=== PATIENT | male | born 1940 | race Caucasian/White ===

== ENCOUNTER → 2020-12-06 10:24 | Outpatient (CLI) | payer OTHER, SELFPAY ==
--- NOTE | 2020-12-06 | DI.MRI.S_ITS ---
PROCEDURE: MR CERVICAL SPINE WO CON INDICATIONS: Radiculopathy, cervical region TECHNIQUE: Noncontrast sagittal T1 spin echo and T2 fast spin echo, sagittal STIR, foraminal oblique sagittal T2 fast spin echo, and axial gradient echo or T2 fast spin echo through the cervical spine. COMPARISON: None. FINDINGS: Image quality: Excellent. Alignment and Curvature: There is trace C7-T1 anterolisthesis. There is loss of normal cervical spine curvature. Bone Marrow: Reactive endplate changes noted adjacent to the C3-C4, C4-C5, C5-C6, C6-C7 and C7-T1 discs. Spinal Cord: Visualized spinal cord has normal size and signal. No cerebellar tonsillar herniation. Paraspinous Soft Tissues: No paravertebral masses. Prevertebral soft tissues are normal in thickness. C2-C3: Loss of disc signal and height. Mild, diffuse disc bulge. Mild bilateral facet hypertrophy. No central stenosis. Severe right and mild left neural foraminal narrowing with compression of the exiting right C3 nerve root. C3-C4: Loss of disc signal and height. Moderate, diffuse disc bulge. Mild bilateral facet hypertrophy. Moderate right and mild left uncovertebral joint hypertrophy. Moderate narrowing of the central canal. Severe bilateral neural foraminal narrowing with compression of the exiting C4 nerve roots. C4-C5: Loss of disc signal and height. Moderate, diffuse disc bulge. Mild to moderate bilateral facet hypertrophy. Moderate bilateral uncovertebral joint hypertrophy. Moderate narrowing of the central canal. Severe bilateral neural foraminal narrowing with compression of the exiting C5 nerve roots. C5-C6: Loss of disc signal and height. Moderate, diffuse disc bulge. Uhhm-mg-lajkwbsw bilateral facet hypertrophy. Moderate bilateral uncovertebral joint hypertrophy. Moderate narrowing of the central canal. Severe bilateral neural foraminal narrowing with compression of the exiting C6 nerve roots. C6-C7: Loss of disc signal and height. Mild, diffuse disc bulge. Vytb-oa-eskggmju bilateral facet hypertrophy. Moderate bilateral uncovertebral joint hypertrophy. Moderate narrowing of the central canal. Severe bilateral neural foraminal narrowing with compression of the exiting C7 nerve roots. C7-T1: Loss of disc signal. Mild, diffuse disc bulge. Mild bilateral facet hypertrophy. Mild narrowing of the central canal. Mild right and moderate left neural foraminal narrowing. No neural compression. IMPRESSION: 1. Multilevel degenerative disc disease. 2. Multilevel facet and uncovertebral arthropathy. 3. No severe central canal narrowing. 4. Severe bilateral C3-C4, C4-C5, C5-C6 and C6-C7 neural foraminal narrowing with compression of the exiting C4, C5, C6 and C7 nerve roots. Dictated by: Magui Oh MD, PhD on 12/06/2020 at 16:10 Approved by: Magui Oh MD, PhD on 12/06/2020 at 16:26
== END ==
PROVIDERS: PCP Family Medicine; Referring Provider Orthopaedic Surgery Orthopaedic Surgery of the Spine; Visit Provider Orthopaedic Surgery Orthopaedic Surgery of the Spine
DX: M50.11 Cervical disc disorder with radiculopathy, high cervical region (principal); M48.02 Spinal stenosis, cervical region; M47.22 Other spondylosis with radiculopathy, cervical region
CPT/HCPCS: 72141

== ENCOUNTER → 2020-12-14 09:33 | Outpatient (CLI) | payer OTHER, SELFPAY ==
--- NOTE | 2020-12-14 | DI.US.S_ITS ---
PROCEDURE: US ABDOMEN COMPLETE INDICATIONS: ABDOMINAL PAIN TECHNIQUE: Real-time scanning was performed of the abdominal and retroperitoneal organs, with image documentation. COMPARISON: None. FINDINGS: Liver: The liver demonstrates normal size. The liver demonstrates generalized moderately increased echogenicity. This decreases ultrasound sensitivity for detection of hepatic masses. The main portal vein is not well seen. Gallbladder: The gallbladder is not well seen. Biliary ducts: Not well seen. Pancreas: Overall not well seen. Spleen: Spleen is normal in size and homogeneous in echotexture. Kidneys: Kidneys are normal in size and echotexture. Right kidney measures 10.2 cm long; left kidney measures 11.9 cm long. No hydronephrosis or nephrolithiasis. No solid masses. Aorta: Visualized aorta is normal in caliber at less than 3 cm. Iliacs: Proximal common iliac arteries are normal in caliber at less than 2.5 cm. IVC: Intrahepatic inferior vena cava is patent. Miscellaneous: No free abdominal fluid. This study is overall limited by bowel gas. IMPRESSION: Limited study, without visualization of the gallbladder or biliary tree. The liver demonstrates increased echogenicity. This finding is nonspecific, yet it is most commonly attributed to fatty infiltration. Dictated by: Simeon Rolon M.D. on 12/14/2020 at 11:28 Approved by: Simeon Rolon M.D. on 12/14/2020 at 11:29
== END ==
PROVIDERS: PCP Family Medicine; Referring Provider Internal Medicine Gastroenterology; Visit Provider Internal Medicine Gastroenterology
DX: R10.9 Unspecified abdominal pain (principal)
CPT/HCPCS: 76700

== ENCOUNTER → 2021-02-06 10:26 | Outpatient (CLI) | payer OTHER, SELFPAY ==
[2021-02-06 11:35] LABS: Add Manual Diff / Slide Review NO; Basophils Absolute Auto 0 /uL (0-100); Basophils Percent Auto 0.4 % (0-2); Eosinophils Absolute Auto 200 /uL (0-450); Eosinophils Percent Auto 4.5 % (2-4); Hematocrit 40.1 % (41-53); Hemoglobin 13.6 g/dL (13.5-17.5); Lymphocytes Absolute Auto 1000 /uL (1100-4500); Lymphocytes Percent Auto 19.1 % (25-40); Mean Corpuscular Hemoglobin 31.9 PG (26-34); Mean Corpuscular Volume 93.7 fL (80-100); Monocytes Absolute Auto 300 /uL (0-900); Monocytes Percent Auto 6.5 % (3-14); Neutrophils Absolute Auto 3800 /uL (1500-7000); Neutrophils Percent Auto 69.5 % (50-75); Platelet Count 192 X10^3/uL (150-400); Red Blood Cell Count 4.28 X10^6/uL (4.5-5.9); Red Cell Distribution Width 12.8 % (11.6-14.8); White Blood Cell Count 5.4 X10^3/uL (4.5-11.0)
[2021-02-06 11:53] LABS: Hemoglobin A1C% w Est Avg Glu 5.4 % (4.0-6.0)
[2021-02-06 12:13] LABS: BUN Creatinine Ratio 12.3 (6-22); Blood Urea Nitrogen 13 mg/dL (9-20); Calcium 9.4 mg/dL (8.4-10.2); Carbon Dioxide 28 mmol/L (22-32); Chloride 104 mmol/L (98-107); Estimated Glomerular Filt Rate > 60.0 mL/min (>60); Glucose 129 mg/dL (80-110); HEMOLYSIS < 15 (0-50); Potassium 4.2 mmol/L (3.4-5.1); Sodium 138 mmol/L (137-145)
== END ==
PROVIDERS: PCP Family Medicine; Referring Provider Orthopaedic Surgery Orthopaedic Surgery of the Spine; Visit Provider Orthopaedic Surgery Orthopaedic Surgery of the Spine
DX: Z01.812 Encounter for preprocedural laboratory examination (principal); Z01.818 Encounter for other preprocedural examination; R73.9 Hyperglycemia, unspecified
CPT/HCPCS: 36415; 80048; 83036; 85025; 93005; 93010

== ENCOUNTER → 2021-02-17 12:21 | Outpatient (CLI) | payer OTHER, SELFPAY ==
--- NOTE | 2021-02-17 | DI.CT.S_ITS ---
PROCEDURE: CT LUMBAR SPINE WO CON INDICATIONS: Spinal stenosis, lumbar region without neurogenic claudicati TECHNIQUE: Noncontrast 3 mm thick sections acquired from the T12 level to the sacrum. Sagittal and coronal reformats were constructed. For radiation dose reduction, the following was used: automated exposure control. COMPARISON: None. FINDINGS: Image quality: Excellent. Bones: No acute vertebral body compression fractures. No suspicious lytic or blastic bony lesions. No pars defects. Mild levoconvex scoliotic curvature is noted. T11-T12: Ajin-uq-yakcoira loss of disc height is seen. Vacuum disc phenomenon is seen at this level. Bridging endplate osteophytes are seen. At least moderate bilateral neural foraminal narrowing can be seen. Mild central canal narrowing is seen. T12-L1: Partially bridging anterior osteophytes are seen. No significant neural foraminal or central canal narrowing can be seen. L1-L2: No significant abnormality is seen. L2-L3: The disc height is well preserved. Relatively prominent bridging anterior and left-sided endplate osteophytes are seen. There is at least moderate bilateral neural foraminal narrowing seen. Moderate to severe central canal narrowing is seen. L3-L4: The disc height is well preserved. At least moderate disc bulge is seen, which is eccentric to the right. Bridging endplate osteophytes are seen. Moderate to prominent facet hypertrophy can be seen at this level. There is moderate to severe bilateral neural foraminal narrowing seen. There is severe central canal narrowing seen, as on series 4, image 53. L4-L5: The disc height is well preserved. Moderate to prominent disc bulge is seen at this level. Bridging endplate osteophytes are seen anteriorly and on the left. Moderate to severe bilateral neural foraminal narrowing can be seen, right worse than left. There is severe central canal narrowing. L5-S1: Moderate loss of disc height is seen. Prominent bridging anterior osteophytes are seen. Bridging endplate osteophytes are also seen on the right side and on the left. Moderate to severe bilateral neural foraminal narrowing can be seen. There is at least moderate central canal narrowing. There is partial visualization of bilateral hip arthroplasty hardware, with associated streak artifact. Soft tissues: No retroperitoneal masses or hematomas. Visualized aorta is normal in caliber. Atherosclerotic calcification is noted. IMPRESSION: Multiple levels of relatively prominent degenerative change can be seen, which are worst inferiorly. Dictated by: Simeon Rolon M.D. on 02/17/2021 at 14:17 Approved by: Simeon Rolon M.D. on 02/17/2021 at 14:21
== END ==
PROVIDERS: PCP Family Medicine; Referring Provider Orthopaedic Surgery Orthopaedic Surgery of the Spine; Visit Provider Orthopaedic Surgery Orthopaedic Surgery of the Spine
DX: M48.061 Spinal stenosis, lumbar region without neurogenic claudication (principal); M51.36 Other intervertebral disc degeneration, lumbar region; M51.37 Other intervertebral disc degeneration, lumbosacral region; M48.07 Spinal stenosis, lumbosacral region
CPT/HCPCS: 72131

== ENCOUNTER → 2021-02-20 11:15 | Outpatient (CLI) | payer OTHER, SELFPAY ==
[2021-02-20 13:50] LABS: COVID19 -Nasal RAPID Negative (Negative)
== END ==
PROVIDERS: PCP Family Medicine; Visit Provider Physician Assistant
DX: Z01.812 Encounter for preprocedural laboratory examination (principal); Z20.822 Contact with and (suspected) exposure to COVID-19
CPT/HCPCS: 87635

== ENCOUNTER 2021-02-21 08:59 | Day surgery (SDC) | payer OTHER, SELFPAY ==
[2021-02-21] VITALS (7 sets, daily range): BP systolic 129–149; BP diastolic 61–77; PULSE 50–55; RESP 12–18; TEMP 36.3–36.6; O2SAT 94–97; BMI 31.3
[2021-02-21] MEDS: SODIUM CHLORIDE 0.9% 1,000 ML 125 ML IV (09:55)
--- NOTE | 2021-02-21 10:37 | P.HP_ITS ---
History of Present Illness History of Present Illness Date Patient Seen: 02/21/21 Time Patient Seen: 10:37 Chief complaint: EGD W/POSS BX Narrative: I reviewed Dr Yuen's note. Possilble LPR and GERD. Patient reports cough, tongue pain and sometimes lower substernal chest pain. On BID PPI. Patient History Comment: See H/P note. Family & Social History Social History: household members spouse Tobacco & Substance use: Smoking Status Never smoker alcohol intake former alcohol intake frequency holiday/special occasion Substance Use Type does not use Meds Home Medications and Allergies Home Medications Medication Instructions Recorded Confirmed Type ACETYLCARNITINE 500 mg PO QDAY #0 12/27/10 02/21/21 History (#[id number]) Ascorbic Acid/Bioflavonoid 200 mg PO QDAY #0 12/27/10 02/21/21 History (#VITAMIN C) CRANBERRY EXTRACT (Cranberry) 500 mg PO QDAY #0 12/27/10 History DICLOFENAC SODIUM (#VOLTAREN EC) 25 mg PO BID #0 12/27/10 02/21/21 History HYDROCHLOROTHIAZIDE (#HCTZ) 25 mg PO QDAY #0 12/27/10 02/21/21 History OMEGA-3/DHA/EPA/FISH OIL ([place]-3 1 cap PO QDAY #0 12/27/10 History Fish Oil Softgel) VITAMIN E (#VITAMIN E) 200 iu PO QDAY #0 12/27/10 02/21/21 History acyclovir 200 mg capsule (Zovirax) 200 mg PO PRN #0 12/27/10 02/21/21 History atorvastatin 80 mg tablet (Lipitor) 80 mg PO QDAY #0 12/27/10 02/21/21 History cholecalciferol (vitamin D3) 25 1,000 unit PO BID #0 12/27/10 02/21/21 History mcg (1,000 unit) tablet (Vitamin D3) citalopram 20 mg tablet (Celexa) 20 mg PO QDAY #0 12/27/10 History lisinopril 20 mg tablet (Prinivil) 20 mg PO QDAY #0 12/27/10 History psyllium husk 0.52 gram capsule 0.52 gm PO Q DAY #0 12/27/10 History (Metamucil) tramadol 50 mg tablet 50 mg PO PRN #0 12/27/10 02/21/21 History pantoprazole 40 mg PO DAILY 02/21/21 02/21/21 History Allergies Allergy/AdvReac Type Severity Reaction Status Date / Time codeine AdvReac Intermediate ITCHING Verified 02/21/21 09:27 Iodine and Iodide Containing AdvReac Intermediate Rash Verified 02/21/21 09:28 Produc adhesive tape AdvReac Mild Rash Verified 02/21/21 09:29 Latex, Natural Rubber AdvReac Mild Rash Verified 02/21/21 09:26 Review of Systems Review of Systems ROS: Yes All systems reviewed with the patient and are negative except as otherwise documented Exam Vital Signs (past 8 hours): - 02/21/21 09:40 Temperature 97.5 F L Pulse Rate 52 L Respiratory Rate 18 Blood Pressure 142/76 H Pulse Oximetry 97 Oxygen Delivery Method Room Air Const General: cooperative and comfortable Orientation: alert HENMT Head: normocephalic Ears: external ears normal Nose: external nose normal Face and sinus: normal facial exam Mouth: oral mucosae normal Eyes General: appearance normal, both eyes and all related structures Neck Neck: normal visual inspection Chest Chest: normal inspection of the chest Resp Effort & Inspection: normal respiratory effort Auscultation: clear to auscultation bilaterally Cardio Rate: regular rate Rhythm: regular rhythm Heart Sounds: no murmurs GI Inspection: normal to inspection Palpation: soft and No tender Auscultation: normal bowel sounds Skin General: no rashes or lesions noted and No jaundice Neuro General: patient alert and moves all extremities Cognition: normal cognition Speech: speech normal Extrem General: no pedal edema Psych Appearance: grossly normal Assessment & Plan Assessment & Plan narrative: Possible GERD ? esophagitis. EGD planned.
--- NOTE | 2021-02-21 11:17 | PM.PREOP ---
Pre-operative Note COVID-19 COVID-19 status: Negative Result date/Date tested (Pos, Neg/Pending): 02/20/21 Interval Note History & Physical reviewed/Exam performed by Physician: Yes Changes to H&P: No ASA Class (for procedural sedation): II
[2021-02-21] MEDS: fentaNYL 250 MCG/5 ML INJ IV (11:43)
[2021-02-21] MEDS: MIDAZOLAM 5 MG/5 ML VIAL IV (11:43)
[2021-02-21] MEDS: LIDOCAINE 4% SOLN 50 ML 20 ML TOP (11:43)
--- NOTE | 2021-02-21 11:48 | PM.OP.ENDO ---
Operative Date/Time/Diagnoses Date of procedure: 02/21/21 Time of procedure: 11:48 Pre-op diagnosis: Cough tongue pain dry mouth possible esophagitis Post-op diagnosis: same Procedure & Clinicians Study performed: EGD Same procedure as scheduled: Yes Indications: Cough sore tongue possible GERD Surgeon: Agustin Danielson Procedure Notes SCOAP/Timeout: Done Procedure in detail: After the risks and benefits were explained, written and verbal informed consent was obtained. The patient was brought into the procedure room and placed into the left lateral decubitus position. Conscious sedation medication was applied as per nursing documentation. The scope was introduced into the mouth through the bite block and advanced under direct visualization to the 2nd portion of the duodenum. The scope was slowly withdrawn carefully examining the mucosa for any defects or lesions. Retroflexed views were accomplished in the stomach. The stomach was decompressed, the scope was then removed from the patient who tolerated the procedure well. 4mg versed 75mcg fentanyl Scope withdrawal time: n/a Sedation minutes: 11 Specimen(s): none sent Complications: none Impression: 1. Duodenum: This appeared visually normal from the bulb through to the 2nd portion. 2. Stomach: No significant pathology appreciated throughout. No ulcers mass lesions inflammatory features. No gastric outlet obstruction retroflexed views of the LES were rather unremarkable. 3. Esophagus: The GE junction was at approximately 39 cm from the incisors. The squamocolumnar junction was very well demarcated and correlated nicely with GEJ. There was no evidence of any active esophagitis. There was some mild tortuosity to the distal esophagus the lower esophageal sphincter mechanism relaxed quite readily allowing is fairly easy entry into stomach. Endoscopic diagnosis 1. Visually normal GE junction 2. Overall unremarkable upper endoscopy. Post-procedure Plan for aftercare: Follow-up GI clinic. Disposition: PACU
== END 2021-02-21 12:54 | disposition home or self-care (01) ==
PROVIDERS: PCP Family Medicine; Referring Provider Internal Medicine Gastroenterology; Visit Provider Internal Medicine Gastroenterology
PROC: 0DJ08ZZ Inspection of Upper Intestinal Tract, Via Natural or Artificial Opening Endoscopic (ICD-10-PCS; CPT 43235; principal; 2021-02-21 10:30)
DX: R05 Cough (principal); R68.2 Dry mouth, unspecified; K14.6 Glossodynia
CPT/HCPCS: 43235; J2250; J3010

== ENCOUNTER → 2021-03-06 10:45 | Outpatient (CLI) | payer OTHER, SELFPAY ==
[2021-03-06 13:01] LABS: COVID19 -Nasal RAPID Negative (Negative)
== END ==
PROVIDERS: PCP Family Medicine; Visit Provider Nurse Practitioner
DX: Z20.822 Contact with and (suspected) exposure to COVID-19 (principal); Z01.812 Encounter for preprocedural laboratory examination
CPT/HCPCS: 87635

== ENCOUNTER 2021-03-09 10:51 | Observation (INO) | payer OTHER, SELFPAY ==
[2021-03-02 08:05] VITALS: BMI 33.1
[2021-03-08] VITALS (16 sets, daily range): BP systolic 109–135; BP diastolic 60–75; PULSE 56–86; RESP 14–20; TEMP 36.2–36.9; O2SAT 92–97; BMI 33.1
[2021-03-08] MEDS: ACETAMINOPHEN 325 MG TABLET 975 MG PO (07:46)
[2021-03-08] MEDS: LACTATED RINGERS 1,000 ML 42 ML IV ×2 (07:57→10:37)
--- NOTE | 2021-03-08 08:26 | PM.HP.1 ---
History of Present Illness History of Present Illness Chief complaint: [place] Interbody Fusion/Laminotomy - Robot *OPB* Narrative: Mr. Hwang is a 80 yo M with hx of chronic back pain and worsening right leg pain, weakness and numbness. He is scheduled for L3-4, L4-5 TLIF. Risks and benefits of surgery and alternatives were explained. Patient will proceed as planned. Patient History Medical History Alzheimer disease Anxiety BPH (benign prostatic hyperplasia) CAD (coronary artery disease) Chronic cough Depression Enlarged prostate GERD (gastroesophageal reflux disease) Hearing impaired Herpes History of Mohs micrographic surgery for skin cancer HLD (hyperlipidemia) HTN (hypertension) Kidney stones ZACK (obstructive sleep apnea) PVD (peripheral vascular disease) Rosacea SCC (squamous cell carcinoma) Sciatica Spinal stenosis Testicular pain Surgical History History of arthroplasty of left hip History of arthroplasty of right hip History of cardiac cath History of detached retina repair History of vasectomy Hx of bilateral cataract extraction Hx of heart artery stent (04/03/05) Hx of lithotripsy Hx of tonsillectomy Hx of transurethral resection of prostate (~1989) Family & Social History Social History: household members spouse Prior Living Arrangements House Safety & Behavioral: Feels Safe in Current Yes Environment Been Physically Hurt or No Threatened By a Person Suicidal Ideation Description None Suicide Plan Description No Plan Tobacco & Substance use: Smoking Status Never smoker alcohol intake former alcohol intake frequency holiday/special occasion Substance Use Type does not use Meds Home Medications and Allergies Home Medications Medication Instructions Recorded Confirmed Type atorvastatin 80 mg tablet (Lipitor) 80 mg PO SEEINSTR #0 12/27/10 03/08/21 History cholecalciferol (vitamin D3) 25 1,000 unit PO BID #0 12/27/10 03/08/21 History mcg (1,000 unit) tablet (Vitamin D3) hydrochlorothiazide 25 mg tablet 12.5 mg PO DAILY #0 12/27/10 03/08/21 History psyllium husk 0.52 gram capsule 0.52 gm PO Q DAY #0 12/27/10 03/08/21 History (Metamucil) tramadol 50 mg tablet 100 mg PO DAILY #0 12/27/10 03/08/21 History vitamin E 400 unit tablet 400 unit PO DAILY #0 12/27/10 03/08/21 History pantoprazole 40 mg tablet,delayed 40 mg PO BID #0 02/21/21 03/08/21 History release acyclovir 400 mg tablet 400 mg PO BID 03/01/21 03/08/21 History cyanocobalamin (vitamin B-12) 1,000 mcg PO DAILY 03/01/21 03/08/21 History 1,000 mcg tablet (Vitamin B-12) famotidine 40 mg tablet 40 mg PO BEDTIME 03/01/21 03/08/21 History gabapentin 600 mg tablet 600 mg PO DAILY 03/01/21 03/08/21 History lisinopril 40 mg tablet 40 mg PO BEDTIME 03/01/21 03/08/21 History meloxicam 15 mg tablet 15 mg PO DAILY 03/01/21 03/08/21 History mirtazapine 15 mg tablet 15 mg PO BEDTIME 03/01/21 03/08/21 History potassium chloride 20 mEq 20 meq PO BID 03/01/21 03/08/21 History tablet,extended release acetaminophen 500 mg tablet 500 mg PO BID 03/08/21 03/08/21 History cetirizine 10 mg tablet (Zyrtec) 10 mg PO DAILY 03/08/21 03/08/21 History duloxetine 60 mg capsule,delayed 60 mg PO DAILY 03/08/21 03/08/21 History release Allergies Allergy/AdvReac Type Severity Reaction Status Date / Time Iodine and Iodide Containing Allergy Severe Rash Verified 03/01/21 14:16 Produc adhesive tape Allergy Intermediate Rash Verified 03/01/21 14:16 codeine Allergy Intermediate ITCHING Verified 03/01/21 14:16 Latex, Natural Rubber Allergy Intermediate Rash Verified 03/01/21 14:16 Sulfa (Sulfonamide AdvReac Intermediate Respiratory Verified 03/01/21 14:16 Antibiotics) difficulty Exam Neuro Other: Decreased sensibility to BLE in L3, L4 dermatome. Motor strength decreased in RLE in TA 4/5. + straight leg raise to RLE. Assessment & Plan Assessment & Plan narrative: Risks for surgery include but not limited to bleeding, infection, nerve/dura/bladder/bowel/blood vessel injury, need for additional procedure, even . Pt understands and will proceed with surgery as planned.
[2021-03-08] MEDS: CEFAZOLIN 1 GM VIAL 2 GM IV ×2 (08:59→17:44)
--- NOTE | 2021-03-08 09:14 | SUR.OPER ---
Prone on spine table, head in foam head support, padded chest and pelvic supports, gel pad at knees, lower legs supported by pillows; nipples, genitalia and toes free of pressure, arms secured on foam padded arm boards at <90 degrees abduction. Tape over blanket at thigh secured to table.
[2021-03-08] MEDS: BUPIVACAINE LIPOSOME 266 MG/20 ML VIAL INJ (09:26)
[2021-03-08] MEDS: BUPIVACAINE 0.25% W/ EPI 30 ML VIAL INJ (09:27)
--- NOTE | 2021-03-08 12:18 | DI.RAD.S_ITS ---
PROCEDURE: XR LUMBAR SPINE 2-3V INDICATIONS: L3-4, L4-5 TLIF TECHNIQUE: 2 views of the lumbar spine were acquired. COMPARISON: [facility], , L-SPINE 2-3 VIEWS, 05/30/2012, 12:09. FINDINGS: 2 spot fluoroscopic intraoperative images demonstrating posterior spinal fixation hardware from L3-L5 with paraspinal burt and pedicle screws. Interbody cage grafts also at L3-L4 and L4-L5. Expected intraoperative alignment. Dictated by: Silvino Guaman M.D. on 03/08/2021 at 12:52 Approved by: Silvino Guaman M.D. on 03/08/2021 at 12:53
--- NOTE | 2021-03-08 12:42 | P.OP_ITS ---
Operative Date/Time/Diagnoses Date of procedure: 03/08/21 Time of procedure: 08:45 Pre-op diagnosis: 1. L3-4, L4-5 spinal stenosis with neurogenic claudication 2. L3-4, L4-5 spondylolisthesis 3. 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 L3-4, L4-5 Postero-lateral and posterior interbody fusion 2. L3-4, L4-5 interbody cage placement. 3. L3-4, L4-5 decompressive laminectomy with bilateral facetecomies 4. L3-4, L4-5 Posterior segmental instrumentation 5. [place] of bone marrow from iliac crest 6. Utilization of microsurgical technique and operating microscope 7. Robotic assisted navigation surgery Same procedure as scheduled: Yes Indications: Patient has been having chronic back pain and worsening lumbar radiculopathy. Patient failed multiple conservative management with worsening pain weakness and numbness in her lower extremity. Patient has been having difficulty performing activity of daily living. After discussing risks benefits of treatment options, patient elected proceed with surgery. Surgeon: Mandy Sun Circle Cutting Saw Operator: Alex Cárdenas Click Yes if Unassisted: No Anesthesia Type: General Operative Notes Closure Type: primary Specimen(s): none sent Prosthetic devices, grafts, tissues, transplants, or devices: Globus CREO MIS screws, Rise cages Applied: catheter Estimated Blood Loss (mL): 200 Blood products transfused: none Procedure in detail: Patient was seen in the preoperative area. Risks and benefits of the surgery was discussed with the patient. Informed consent was obtained from the patient and placed in the chart. Surgical site was marked. Patient was taken to the operative room. General anesthesia was administered. Prophylactic antibiotic was given to the patient less than 30 min before the incision was made. Patient was placed into a prone position on the Gilmer table. Patient's back was then prepped and draped in the sterile fashion. Time- out was performed at this time. After patient was prepped and draped, patient's PSIS was palpated and marked bilaterally. Small 1 cm incision was made over the PSIS for placement of the reference probes. Two trocar was placed into the PSIS 1 on each side. The reference probe was attached to the trocar of the reference apparatus. At this time the C-arm imaging was used to confirm AP and lateral of L3, L4-L5 vertebrae and merged the C-arm imaging using the Second & Fourth robotic navigation system with the CT of the lumbar spine. After successful merging was completed and confirmed, skin marker was used to vicky out the skin incision using the Second & Fourth robotic arm. Bilateral incision was made at this time. Pre templated trajectory was used and guided using the Second & Fourth robotic navigation system for bilateral L3 L4, L5 pedicle screw placement. This was done by using the robotic arm to guide the high-speed bur to make a cortical entry point. Next a drill was placed also using the robotic arm and guided using the navigation system drilling partially through bilateral L3, L4, L5 pedicles. Next L3, L4, L5 pedicle screws it was pre templated and measured was placed onto the power cement truck driver and inserted into the pedicles bilaterally. After all 6 screws were placed C-arm imaging was taken of both AP and lateral to confirm the placement. Excellent placement of the screws were confirmed and a matched precisely with the pre planned screw placement using the navigation system. MARs retractor was inserted using Priztagivation guidence. Globus MARS retractors was placed inside the incision and docked onto the L3, L4 lamina from the right side. Using microsurgical technique and operating microscope, a L3, L4 laminectomy and L3-4, L4-5 facetectomy was performed using a Kerrison rongeur. Patient was found have severe lateral recess and neural foramen stenosis which was fully decompressed after the laminectomy facetectomy. More than 75% of the facets were removed during the process of decompression rendering L3-4, L4-5 level grossly unstable and required a fusion procedure at the same time. The disc space at L3-4, L4-5 was identified, and a total diskectomy was performed at L3-4, L4-5 level. The endplates were decorticated using a rasp and shaver. The total diskectomy and decortication was performed at L3-4, L4-5 level in order to to accomplish a L3-4, L4-5 fusion. The local bone from the laminectomy and facetectomy was saved for local bone grafting. After the total diskectomy and decortication was completed, Trifecta bone graft material was combined with local bone that was harvested earlier. At this time, a separate skin is incision was made over the iliac crest. A Jamshidi needle was inserted into the iliac crest through a separate skin incision. 5 cc of bone marrow aspiration was obtained through the separate skin incision using a Jamshidi needle from the iliac crest. The bone marrow aspiration was combined with local bone and the Trifecta bone grafting material. The bone grafting material was placed into the L3-4, L4-5 interbody space along with expandable cages. One cage each was inserted into the L3-4 L4-5 interbody space along with bone graft material. The cage was expanded to its maximum height using the torque limiting screwdriver. The disc preparation as well as the cage insertion were also performed under navigation guidance. After the cage was placed, AP and lateral C-arm imaging was taken to confirm placement of the cage and excellent position was confirmed. Globus MARS retractor was inserted and docked onto the L3-4, L4-5 posterolateral gutter on the left side. Using the power drill, posterior-lateral decortication was performed at L3-4, L4-5 level until bleeding cortical bone was identified. The remaining bone grafting material was placed into the L3-4, L4-5 posterior lateral gutter he order to accomplish posterolateral fusion at the L3-4, L4-5 level. At this time the tulips were attached to the L3, L4-L5 pedicle screw shanks. After measuring the length of the rods, they were inserted into the tulips of the pedicle screws and locked in place using locking caps and torque limiting screwdriver bilaterally. Total 6 caps and 2 titanium rods was used in order to complete the posterior instrumentation construct. After all the hardware was placed, and confirmed with AP and lateral C-arm imaging, the wound was then irrigated with sterile normal saline and packed with Ray-Luca gauze for 3 min to accomplish hemostasis. After the gauze was removed the deep fascia was closed with #1 Vicryl suture. The subcutaneous layer was closed with 2-0 Vicryl. The skin was closed with skin leonardo. Patient tolerated the procedure well. There were no complications. Neuro monitoring system was used to monitor patient's neurologic status throughout entire procedure. There was no disturbance of the neural monitoring signals throughout the case. Complications: none Post-operative Condition: stable Disposition: PACU Plan for aftercare: Admit to inpatient hospital
--- NOTE | 2021-03-08 13:22 | SUR.PHASEI ---
Received to PACU after general anesthesia. Airway patent, self maintained. Pt requiring 4LNC to maintain O2 sats >90%. Report from DINA Sevilla and Dr Edwards.
--- NOTE | 2021-03-08 13:36 | SUR.PHASEI ---
Attempted to call report to floor. RN at lunch.
--- NOTE | 2021-03-08 14:55 | PC.NURSE ---
Patient admitted to room 212, he had a TLIF with a cdi dressing to his lower back. Patient denies numbness or tingling to lower extremities or back. He will be on ivf. Patient with hx of dementia, very attentive with care. He states that his pain was a 3/10 earlier. Will check on patient now.
[2021-03-08] MEDS: SODIUM CHLORIDE 0.9% 1,000 ML 100 ML IV (15:56)
--- NOTE | 2021-03-08 16:20 | SUR.PHASEI ---
Pt transferred to room 212 by DINA Parmar and ADALID Ronquillo. On arrival to room, pt c/o left eye pain and burning. In PACU, pt had complained that left eye was itchy. DINA Parmar to update anesthesiologist.
[2021-03-08] MEDS: lisinopriL 20 MG TABLET 40 MG PO (21:02)
[2021-03-08] MEDS: POTASSIUM CHLORIDE 20 MEQ TAB PO (21:03)
[2021-03-08] MEDS: DOCUSATE 100 MG CAPSULE PO (21:03)
[2021-03-08] MEDS: ACYCLOVIR 400 MG TABLET PO (21:03)
[2021-03-08] MEDS: MIRTAZAPINE 15 MG TABLET PO (21:03)
[2021-03-08] MEDS: CHOLECALCIFEROL (VITAMIN D3) 1,000 UNIT TABLET 1000 UNIT PO (21:03)
[2021-03-08] MEDS: FAMOTIDINE 20 MG TABLET 40 MG PO (21:03)
[2021-03-08] MEDS: OXYCODONE IR 5 MG TABLET 10 MG PO (21:03)
[2021-03-08] MEDS: SENNOSIDES 8.6 MG TABLET 17.2 MG PO (21:03)
[2021-03-08] MEDS: PANTOPRAZOLE DR 40 MG TABLET PO (21:10)
[2021-03-08] MEDS: hydrOXYzine pamoate 25 MG CAPSULE PO (23:18)
[2021-03-08] MEDS: ACETAMINOPHEN 325 MG TABLET 650 MG PO (23:18)
[2021-03-09] VITALS (8 sets, daily range): BP systolic 112–134; BP diastolic 57–69; PULSE 58–77; RESP 14–17; TEMP 36.7–37.9; O2SAT 94–98
[2021-03-09] MEDS: CEFAZOLIN 1 GM VIAL 2 GM IV (00:43)
[2021-03-09] MEDS: OXYCODONE IR 5 MG TABLET 10 MG PO ×2 (00:45→19:43)
--- NOTE | 2021-03-09 00:56 | PC.NURSE ---
Patient is alert and oriented except to date/day of week. Breath sounds CTA but has sleep apnea and does not tolerate a CPAP so desats when sleeping; currently on oxygen at 3L/min per NC with sat of 97%. HRR. Denies nausea. BT present but denies passing flatus as yet. Indwelling catheter is patent; urine is dark yellow. Complained of back pain so medicated with Tylenol + Vistaril and assisted to reposition onto left side. Dressing to back intact with shadow drainage noted and outlined. Does have some numbness in toes of bilateral feet otherwise CMS is intact. Wearing bilateral foot SCD's. Fall risk score is high and bed alarm is activated. Patient now complaining of increasing back pain and requested/medicated with Oxycodone; declines to be repositioned at this time.
--- NOTE | 2021-03-09 01:34 | PC.NURSE ---
SUPERVISOR FINAL note: pulled pillow out a bit to change patient's position and relieve pressure.
[2021-03-09] MEDS: SODIUM CHLORIDE 0.9% 1,000 ML 100 ML IV (02:19)
[2021-03-09] MEDS: PANTOPRAZOLE DR 40 MG TABLET PO ×2 (06:30→20:23)
[2021-03-09 06:36] LABS: Hematocrit 32.6 % (41-53); Hemoglobin 11.3 g/dL (13.5-17.5)
--- NOTE | 2021-03-09 07:49 | PM.PNPO.1 ---
Subjective Subjective Date Patient Seen: 03/09/21 Time Patient Seen: 07:49 Interval history: Patient's pain is mild. Denies fever or chills. No nausea vomiting. Patient's is home to assist him however has had multiple back surgeries and notes concerns about being able to assist him. They have 3 steps into the house. Otherwise without complaints. Exam Vital Signs (past 8 hours): - 03/09/21 05:54 Temperature 98.1 F Pulse Rate 68 Respiratory Rate 16 Blood Pressure 132/57 L Pulse Oximetry 95 Oxygen Delivery Method Nasal Cannula Oxygen Flow Rate 3 Narrative Exam Narrative: Pleasant 80-year-old male resting in bed in no apparent distress. Motor functions intact bilateral lower extremities. Sensation grossly intact to light touch bilateral lower extremities. Both legs are warm and dry. SCDs on and functioning. Scant drainage on the dressing bilaterally otherwise intact. Objective Labs Result Diagrams: 03/09/21 06:25 Labs: Laboratory Results - last 24 hr 03/09/21 06:25 Hgb 11.3 L Hct 32.6 L PFSH Medical History Alzheimer disease Anxiety BPH (benign prostatic hyperplasia) CAD (coronary artery disease) Chronic cough Depression Enlarged prostate GERD (gastroesophageal reflux disease) Hearing impaired Herpes History of Mohs micrographic surgery for skin cancer HLD (hyperlipidemia) HTN (hypertension) Kidney stones ZACK (obstructive sleep apnea) PVD (peripheral vascular disease) Rosacea SCC (squamous cell carcinoma) Sciatica Spinal stenosis Testicular pain Surgical History History of arthroplasty of left hip History of arthroplasty of right hip History of cardiac cath History of detached retina repair History of vasectomy Hx of bilateral cataract extraction Hx of heart artery stent (04/03/05) Hx of lithotripsy Hx of tonsillectomy Hx of transurethral resection of prostate (~1989) Social History household members: spouse Smoking Status: Never smoker alcohol intake: former Assessment & Plan Post-op Postoperative Procedures: Procedures Operation Date: 03/08/21 07:45 Actual Procedure Side Surgeon p L3-4, L4-5 TLIF w. posterior instrumentation Mandy Sun MD Postoperative status narrative: Stable status post lumbar fusion Postoperative plan narrative: mobilize with physical therapy. Limit bending, twisting, lifting. Discontinue Herrera. Disposition likely home tomorrow.
[2021-03-09] MEDS: DULOXETINE 30 MG CAPSULE 60 MG PO (08:40)
[2021-03-09] MEDS: LORATADINE 10 MG TABLET PO (08:40)
[2021-03-09] MEDS: CYANOCOBALAMIN (VITAMIN B-12) 500 MCG TABLET 1000 MCG PO (08:40)
[2021-03-09] MEDS: DOCUSATE 100 MG CAPSULE PO ×2 (08:40→20:20)
[2021-03-09] MEDS: ACYCLOVIR 400 MG TABLET PO ×2 (08:40→20:20)
[2021-03-09] MEDS: ACETAMINOPHEN 325 MG TABLET 650 MG PO ×3 (08:40→19:43)
[2021-03-09] MEDS: GABAPENTIN 600 MG TABLET PO (08:40)
[2021-03-09] MEDS: POTASSIUM CHLORIDE 20 MEQ TAB PO ×2 (08:40→20:21)
[2021-03-09] MEDS: CHOLECALCIFEROL (VITAMIN D3) 1,000 UNIT TABLET 1000 UNIT PO ×2 (08:40→20:20)
[2021-03-09] MEDS: ATORVASTATIN 20 MG TABLET 80 MG PO (08:45)
--- NOTE | 2021-03-09 09:40 | PT.IIE ---
Current Diagnoses Spondylolisthesis, lumbar region (03/09/21) Surgery Performed Operation Date: 03/08/21 07:45 Actual Procedures p L3-4, L4-5 TLIF w. posterior instrumentation - Mandy Sun MD Medical History (Last Reviewed 03/09/21 @ 07:51 by Kranthi Gaytan PA-C) Alzheimer disease Anxiety BPH (benign prostatic hyperplasia) CAD (coronary artery disease) Chronic cough Depression Enlarged prostate GERD (gastroesophageal reflux disease) Hearing impaired Herpes History of Mohs micrographic surgery for skin cancer HLD (hyperlipidemia) HTN (hypertension) Kidney stones ZACK (obstructive sleep apnea) PVD (peripheral vascular disease) Rosacea SCC (squamous cell carcinoma) Sciatica Spinal stenosis Testicular pain Physical Therapy Inpatient Evaluation/Re-Eval M1 PT/OT-IP Prior Functional Status Start: 03/09/21 11:51 Freq: NEEDED Status: Active Protocol: Document 03/09/21 10:50 [facility] (Rec: 03/09/21 11:56 [facility] [id number]) Medical Review Prior Functional Status Medical History Reviewed Yes Communication Able to communicate his needs. Per pt has Alzheimers and decreased short term memory. Activities of Daily Living and IADL's Pt able to do all his ADL need with use of a cane to assist. Social History Household Members spouse Living Arrangements House Number of Floors (Floors) Two Floors Number of Stairs To Enter/Railing? Pt a 3 narrow steps and bilateral rails to their proch and able to stay on the main level. Home Environment Standard Height Toilet,Tub/ Shower Home Equipment Front Wheel Walker,Straight Cane,Bedside Commode,Long Handled Sponge,Industrial Engineering Analyst M2 PT-IP Current Condition Start: 03/09/21 12:16 Freq: NEEDED Status: Active Protocol: Document 03/09/21 09:40 AB (Rec: 03/09/21 12:28 AB [id number]) Physical Therapy Current Condition Current Condition Evaluation Date 03/09/21 Treatment Diagnosis s/p L3-4, L4-5 fusion/lami; difficulty in walking Onset Date 03/08/21 Precautions Lumbar Precautions Log Roll,No Twisting,Limit Bending,Lifting Restriction of 10 lbs,Gait Belt above Incisional Area M3 PT-IP Subjective Start: 03/09/21 12:16 Freq: NEEDED Status: Active Protocol: Document 03/09/21 09:40 AB (Rec: 03/09/21 12:28 AB [id number]) Subjective Physical Therapy Visit Type Type Initial Evaluation Visit Start Time 09:40 Visit Stop Time 10:38 Total Visit Minutes 58 Number of MITER SAWYER Visits 0 Physical Therapy Visit Comments Patient Comments pt is agreeable to do PT Therapy Pain Assessment Pain When Pain Assessed At Rest Pain Present Pain Present Pain Reported Location Back Intensity 5 Scale Used increases to 8/10 with mobility Pain Management Techniques Apply Cold,Distraction, Modification of Treatment,Re- positioning,Timing of Activity with Medications M4 PT-IP Mobility and Gait Start: 03/09/21 12:16 Freq: NEEDED Status: Active Protocol: Document 03/09/21 09:40 AB (Rec: 03/09/21 12:28 AB [id number]) PT-Bed Mobility Assessment Rolling Type of Rolling Log Rolling Level of Assist Minimal Assistance Supine to Sit Supine to Sit Minimal Assistance Scooting Scooting to Edge of Bed Minimal Assistance PT-Transfer Assessment Sit to and From Stand Sit to and from Stand Minimal Assistance,1 Person Assistance,Use of Upper Extremities Equipment Transfer Assistive Device Gait Belt,Front Wheeled Walker Orthotic/Prosthetic Devices or Brace: No Transfers Transfer Destination Chair Transfer Technique ambulated using FWW Transfer Ability Level of Assist Minimal Assistance,1 Person Assistance,Use of Upper Extremities Comments Mobility Comments BP in supine: 108/63. educated on back precautions and log roll bed mobility. spouse in room. pt with dx of alzheimers dementia and has difficulty recalling precautions. pt completed log roll supine to sit min A and max cues. pt was able to sit on EOB SBA. BP in sittin/54. pt completed sit to stand min A and cues and ambulated in room using FWW min A ~ 50 ft. pt agreed to sit up on chair. positioned on chair. call light and table placed wtihin reach. Gait Assessment Gait Gait Assistance Required: Minimum Assistance Distance (Feet) 50 Able to Maintain Weight Bearing Status Yes During Gait Assistive Devices Assistive Device Gait Belt,Front Wheeled Walker Orthotic/Prosthetic Devices or Brace: No Gait Deviations General Gait Pattern Decreased Stride Length, Decreased Feet Clearance, Flexed Trunk Factors Limiting Gait Function Factors Limiting Gait Function Abnormal Tonal Influences, Decreased Strength,Limited Range of Motion,Pain,Poor Balance,Poor Safety Awareness PT-Balance Assessment Sitting Balance and Reactions Static Sitting Balance Ability Good Dynamic Sitting Balance Ability Good Standing Balance and Reactions Static Standing Balance Ability Fair Dynamic Standing Balance Ability Fair Device Used FWW M5 PT-IP Objective Assessments Start: 03/09/21 12:16 Freq: NEEDED Status: Active Protocol: Document 03/09/21 09:40 AB (Rec: 03/09/21 12:28 AB [id number]) Orientation Orientation/Cognition Level of Alertness Alert Orientation Name Safety Awareness Decreased Safety Awareness Memory Description Short Term Impaired,Extruder Operator Multiple Impaired Gross Range of Motion Lower Extremity ROM Assessment Within Functional Limits Strength Lower Extremity Strength Assessment Right Impaired Hip 3+/5 Knee 4-/5 Coordination Assessment Gross Coordination Gross Coordination WNL Sensation Assessment Sensation Gross Sensation WNL Muscle Tone Muscle Tone WNL Yes M6 PT-IP Treatment Start: 03/09/21 12:16 Freq: NEEDED Status: Active Protocol: Document 03/09/21 09:40 AB (Rec: 03/09/21 12:28 AB [id number]) Physical Therapy Treatment Education Education Provided Precautions,Weight Bearing Status,Post-Op Packet,Safety M7 PT-IP Assessment and Plan Start: 03/09/21 12:16 Freq: NEEDED Status: Active Protocol: Document 03/09/21 09:40 AB (Rec: 03/09/21 12:28 AB [id number]) PT Summary Assessment and Plan Potential Rehabilitation Potential Good Status of Condition at Evaluation Stable Summary Impairments Pain,ROM,Strength,Balance, Coordination,Sensation,Tone, Cognition,Bed Mobility, Transfers,Gait,Activity Tolerance Assessment Summary pt requiring min A with mobility using FWW. pt plans to go home with spouse to assist . will conduct caregiver training and stair climbing training prior to d/c . Goals Bed Mobility Goal Standby Assistance Transfer Goal Standby Assistance,Front Wheeled Walker Gait Goal Standby Assistance,Front Wheel Walker Gait Distance 150 Other Goals up/down 3 steps B rails SBA Days to Meet Goals 5 Frequency of Treatment Frequency Of Treatment Twice a Day Treatment Plan Physical Therapy Treatment Plan Bed Mobility Training,Transfer Training,Gait Training, Therapeutic Exercise,Balance Retraining,Post Op Education, Discharge Planning,Hot or Cold Pack,Neuromuscular Re-ed, Coordination Retraining,Manual Therapy Other Recommendations and Next Treatment log roll bed mobility, Focus ambulation, stair climbing, caregiver training Precautions Lumbar Precautions Log Roll,No Twisting,Limit Bending,Lifting Restriction of 10 lbs,Gait Belt above Incisional Area Recommendations To Nursing Amount of Assist Needed 1 Person Assist Discharge Recommendations PT Discharge Recommendations Home with 24/ Assist Available Transportation Needs at Discharge Private Vehicle
--- NOTE | 2021-03-09 09:43 | PC.NURSE ---
Assess- Patient is alert and oriented x2, he states that his pain is at a 3/10. Given some tylenol and he has been resting comfortably supine in bed. Dressing to low mid back with some shadow drainage, otherwise cdi. He will be working with physical therapy soon, after more mobile will take patients figueroa catheter out. CMS wnl and patient denies any numbness or tingling in lower extremities.
--- NOTE | 2021-03-09 12:23 | OT.IP.EVAL ---
Current Diagnoses Spondylolisthesis, lumbar region (03/09/21) Surgery Performed Operation Date: 03/08/21 07:45 Actual Procedures p L3-4, L4-5 TLIF w. posterior instrumentation - Mandy Sun MD Past Medical History (Last Reviewed 03/09/21 @ 07:51 by Kranthi Gaytan PA-C) Alzheimer disease Anxiety BPH (benign prostatic hyperplasia) CAD (coronary artery disease) Chronic cough Depression Enlarged prostate GERD (gastroesophageal reflux disease) Hearing impaired Herpes History of arthroplasty of left hip History of arthroplasty of right hip History of cardiac cath History of detached retina repair History of Mohs micrographic surgery for skin cancer History of vasectomy HLD (hyperlipidemia) HTN (hypertension) Hx of bilateral cataract extraction Hx of heart artery stent (04/03/05) Hx of lithotripsy Hx of tonsillectomy Hx of transurethral resection of prostate (~1989) Kidney stones ZACK (obstructive sleep apnea) PVD (peripheral vascular disease) Rosacea SCC (squamous cell carcinoma) Sciatica Spinal stenosis Testicular pain Surgical History (Last Reviewed 03/09/21 @ 07:51 by Kranthi Gaytan PA-C) History of arthroplasty of left hip History of arthroplasty of right hip History of cardiac cath History of detached retina repair History of vasectomy Hx of bilateral cataract extraction Hx of heart artery stent (04/03/05) Hx of lithotripsy Hx of tonsillectomy Hx of transurethral resection of prostate (~1989) Occupational Therapy Inpatient Evaluation/Re-Eval M1 PT/OT-IP Prior Functional Status Start: 03/09/21 11:51 Freq: NEEDED Status: Active Protocol: Document 03/09/21 10:50 [facility] (Rec: 03/09/21 11:56 [facility] [id number]) Medical Review Prior Functional Status Medical History Reviewed Yes Communication Able to communicate his needs. Per pt has Alzheimers and decreased short term memory. Activities of Daily Living and IADL's Pt able to do all his ADL need with use of a cane to assist. Social History Household Members spouse Living Arrangements House Number of Floors (Floors) Two Floors Number of Stairs To Enter/Railing? Pt a 3 narrow steps and bilateral rails to their porch and able to stay on the main level. Home Environment Standard Height Toilet,Tub/ Shower Home Equipment Front Wheel Walker,Straight Cane,Bedside Commode,Long Handled brush,Handicapper [employer] M2 OT-IP Current Condition Start: 03/09/21 11:51 Freq: Status: Active Protocol: Document 03/09/21 10:50 [facility] (Rec: 03/09/21 12:23 [facility] [id number]) Occupational Therapy Current Condition Current Condition Evaluation Date 03/09/21 Treatment Diagnosis S/p L3-4, l4-5 TLIF with posterior inst Diagnosis Onset Date 03/08/21 Post Operative Precautions Lumbar Precautions Log Roll,No Twisting,Limit Bending,Lifting Restriction of 10 lbs,Gait Belt above Incisional Area M3 OT- IP Subjective and Pain Start: 03/09/21 11:51 Freq: Status: Active Protocol: Document 03/09/21 10:50 [facility] (Rec: 03/09/21 12:23 [facility] [id number]) OT- Subjective Occupational Therapy Visit Type Type Initial Evaluation Visit Start Time 10:50 Visit Stop Time 11:24 Total Visit Minutes 34 Occupational Therapy Visit Comments Patient Comments Pt agreed to get up and pt's in the room for OT eval. Patient/Caregiver Goals TO go home. OT Pain Assessment Pain When Pain Assessed During Mobility Pain Present Pain Present Pain Reported Location Back Intensity 5 Scale Used Numeric (0 - 10) M4 OT- IP ADL's Start: 03/09/21 11:51 Freq: Status: Active Protocol: Document 03/09/21 10:50 [facility] (Rec: 03/09/21 12:23 [facility] [id number]) OT [id number] Comments OT Self-Feeding Comments Not at meal time. OT ADL-Grooming Comments OT Grooming Comments Educated pt best to spit into a cup to best follow his back precautions or hinge at his hips to lean and spit into the sink. OT ADL-Oral Care Comments Oral Care Comments Not performed. OT ADL-Dressing General Eval Lower Body Dressing Ability Moderate Assistance Areas Needing Assistance Pants/Shorts,Socks Comments OT Dressing Comments After education pt able to use mechanical product design engineer to doff his socks. At home pt uses his cane to assist to take off the socks. Pt able to reach down appropriately to get his shorts on and needing assist to for left foot into the shorts. OT ADL-Toileting General Evaluation Toileting Ability Standby Assistance Comments OT Toileting Comments Pt able to reach from the front appropriately to wipe rectal area while following his back precautions. OT ADL-Bathing Comments OT Bathing Comments Pt to do showering tomorrow. M5 OT- IP IADL's Start: 03/09/21 11:51 Freq: Status: Active Protocol: Document 03/09/21 10:50 [facility] (Rec: 03/09/21 12:23 [facility] [id number]) OT-Instrumental Activities of Daily Living Home Safety Awareness Awareness of Need for Assistance at Home Decreased Awareness Ability to Problem Solve Emergency Unable to Problem Solve Situations Home Safety Comments Pt has Alzheimer's and has decreased safety awareness. Medication Management Medication Management Caregiver Administers Money Management Money Management Caregiver Provides Assistance Meal Preparation Meal Preparation Caregiver Provides Assist Community Center Director Community Center Director Caregiver Provides Assist Driving Driving Caregiver Provides Assist M6 OT- IP Functional Cognition Start: 03/09/21 11:51 Freq: Status: Active Protocol: Document 03/09/21 10:50 [facility] (Rec: 03/09/21 12:23 [facility] [id number]) Cognitive Factors Limiting Selfcare Function Cognitive Ability Level of Alertness Alert Patient Orientation Name,Place,Situation Attention Span Ability Capable of Focused Attention, Capable of Sustained Attention Ability to Follow Commands Able to Follow One Step Commands with Increased Time, Able to Follow One Step Commands with Repetition Memory Description Short Term Impaired Safety Awareness Decreased Recall of Precautions,Decreased Ability to Apply Precautions, Underestimates Need for Assistance Problem Solving Ability Needs Assist to Identify Solutions Executive Function Ability Unable to Filter Distractions, Unable to Organize Plans, Unable to Remember Details Cognitive Comments Cognitive Assessment Comments Pt not able to recall his back precautions, needs continuous cues for safety awareness of back precautions and use of FWW. Cues to always keep the FWW in front of him. OT- Vision and Hearing OT- Hearing Assessment OT- Hearing Assessment WFL OT- Vision Assessment Visual Acuity Glasses All The Time M7 OT- IP Mobility and Balance Start: 03/09/21 11:51 Freq: Status: Active Protocol: Document 03/09/21 10:50 [facility] (Rec: 03/09/21 12:23 [facility] [id number]) OT-Transfer Assessment Sit to and From Stand Sit to and from Stand Contact Guard Assistance Transfers Transfer Ability Minimal Assistance Technique Transfer Destination Chair,Toilet Transfer Technique Stand Step Pivot Devices Transfer Assistive Devices Gait Belt,Front Wheeled Walker Comments Mobility Comments CGA to RAINE to stand from lower surfaces with FWW. OT- Balance Assessment Sitting Balance and Reactions Static Sitting Balance Ability Normal Dynamic Sitting Balance Ability Good Standing Balance and Reactions Static Standing Balance Ability Fair M8 OT- IP Objective Assessments Start: 03/09/21 11:51 Freq: Status: Active Protocol: Document 03/09/21 10:50 [facility] (Rec: 03/09/21 12:23 [facility] [id number]) OT Gross Range of Motion Upper Extremity Range of Motion Assessment Within Functional Limits OT-Muscle Tone Assessment Muscle Tone WNL Yes M9 OT- IP Assessment and Plan Start: 03/09/21 11:51 Freq: Status: Active Protocol: Document 03/09/21 10:50 [facility] (Rec: 03/09/21 12:23 [facility] [id number]) OT Summary Assessment and Plan Potential Rehabilitation Potential Good Analytic Complexity at Evaluation Low Summary OT Impairments Pain,Balance,Functional Cognition,Functional Mobility, Grooming,Dressing,Toileting, Bathing,Toilet Transfers, Shower Transfers Progress Towards Goals Progressing Toward Goals,Slow Progress due to Cognition Assessment Summary Pt low complexity and main barriers are pain, steps, and decreased safety awareness and short term memory. Pt has a supportive to assist at home. Pt's to do caregiver training for showering and dressing needs tomorrow for OT. Pt looking to go home when medically stable . Pt would benefit from shower chair and sock aid. Goals Grooming Goal Independent Dressing Goal Independent Toileting Goal Independent Bathing Goal Standby Assistance Toilet Transfer Goal Independent Shower Transfer Goal Standby Assistance Patient/Caregiver Education Goal Demonstrate Post-Op Precautions,Caregiver Independent Assisting Patient Days to Meet Goals 3 Frequency of Treatment Frequency Of Treatment Once a Day Treatment Plan OT Treatment Plan ADL Training,Functional Cognition Training,Functional Mobility,Patient/Family Education,Discharge Planning Other Treatment Recommendations and Next Caregiver training with . Treatment Focus Shower Discharge Recommendations OT Discharge Recommendations Home with 18/02 Assist Available Home Equipment Needs Shower chair, sock aid Transportation Needs at Discharge Private Vehicle
--- NOTE | 2021-03-09 14:01 | PT.IPTN ---
Current Diagnoses Spondylolisthesis, lumbar region (03/09/21) Surgery Performed Operation Date: 03/08/21 07:45 Actual Procedures p L3-4, L4-5 TLIF w. posterior instrumentation - Mandy Sun MD Physical Therapy Treatment Note M2 PT-IP Current Condition Start: 03/09/21 12:16 Freq: NEEDED Status: Active Protocol: Document 03/09/21 13:41 MA (Rec: 03/09/21 14:01 MA [id number]) Physical Therapy Current Condition Current Condition Evaluation Date 03/09/21 Treatment Diagnosis s/p L3-4, L4-5 fusion/lami; difficulty in walking Onset Date 03/08/21 Precautions Lumbar Precautions Log Roll,No Twisting,Limit Bending,Lifting Restriction of 10 lbs,Gait Belt above Incisional Area M3 PT-IP Subjective Start: 03/09/21 12:16 Freq: NEEDED Status: Active Protocol: Document 03/09/21 13:41 MA (Rec: 03/09/21 14:01 MA [id number]) Subjective Physical Therapy Visit Type Type Treatment Note Visit Start Time 13:15 Visit Stop Time 13:40 Total Visit Minutes 25 Number of FARM MACHINERY SET UP MECHANIC Visits 1 Physical Therapy Visit Comments Patient Comments Pt is agreeable to therapy and stair training today. present in room Therapy Pain Assessment Pain When Pain Assessed During Mobility Pain Present Pain Present Pain Reported Location Back Intensity 7 Scale Used Numeric (0 - 10) Description With Movement Pain Management Techniques Distraction,Modification of Treatment,Re-positioning, Timing of Activity with Medications M4 PT-IP Mobility and Gait Start: 03/09/21 12:16 Freq: NEEDED Status: Active Protocol: Document 03/09/21 13:41 MA (Rec: 03/09/21 14:01 MA [id number]) PT-Bed Mobility Assessment Rolling Type of Rolling Log Rolling Level of Assist Contact Guard Assistance Supine to Sit Supine to Sit Minimal Assistance Sit to Supine Sit to Supine Moderate Assistance Scooting Scooting to Edge of Bed Contact Guard Assistance PT-Transfer Assessment Sit to and From Stand Sit to and from Stand Contact Guard Assistance,1 Person Assistance,Use of Upper Extremities Equipment Transfer Assistive Device Gait Belt,Front Wheeled Walker Orthotic/Prosthetic Devices or Brace: No Transfers Transfer Destination Bed Transfer Technique Stand Step Pivot Transfer Ability Level of Assist Contact Guard Assistance,1 Person Assistance,Use of Upper Extremities Comments Mobility Comments Pt found supine in bed with and piano case and bench assembler present in room. Nurse states pt just got back to bed from chair where he sat up for several hours. Pt needs prompts to remember precautions but is able to repeat 2/3 precautions at end of session. He requires CGA to log roll and Min A with verbal cues for SL> sitting EOB. Once seated, BP was 111/62. Pt has 7/10 pain with movement but is able to sit>stand CGA. After ambulating and stair training, pt requires Mod A for LEs and trunk control for sit>SL and log rolling back in bed. Gait Assessment Gait Gait Assistance Required: Contact Guard Assist,1 Person Assist Distance (Feet) 250 Able to Maintain Weight Bearing Status Yes During Gait Assistive Devices Assistive Device Gait Belt,Front Wheeled Walker Orthotic/Prosthetic Devices or Brace: No Gait Deviations General Gait Pattern Antalgic,Decreased Stride Length,Decreased Feet Clearance,Flexed Trunk Factors Limiting Gait Function Factors Limiting Gait Function Abnormal Tonal Influences, Decreased Strength,Limited Range of Motion,Pain,Poor Balance,Poor Safety Awareness Comments Gait Comments Pt was able to ambulate outside of room with gait belt and FWW 125 ft. Returned to room to get for caregiver training where pt walked ~60 ft to therapy stairs and ascended/descended three steps with bilateral rails CGA. Pt' s was given training on best practices for guarding pt on stairs. Pt then ambulated ~60 ft back to room with FWW & gait belt CGA. Stair Climbing Assessment Evaluation Level of Assist On Stairs Contact Guard Assistance,1 Person Assistance Devices Stair Climbing Assistive Devices Left Railing,Right Railing Technique/Endurance Stair Climbing Direction Ascend and Descend Stair Climbing Technique Step Over Step Number of Steps Climbed 3 Stair Climbing Set # Repetitions (reps) 1 Comments Stair Climbing Comments Pt ascended [id number] and descended step-to. See above gait comments for more details PT-Balance Assessment Sitting Balance and Reactions Static Sitting Balance Ability Good Dynamic Sitting Balance Ability Good Standing Balance and Reactions Static Standing Balance Ability Good Dynamic Standing Balance Ability Fair Device Used FWW M5 PT-IP Objective Assessments Start: 03/09/21 12:16 Freq: NEEDED Status: Active Protocol: Document 03/09/21 09:40 AB (Rec: 03/09/21 12:28 AB [id number]) Orientation Orientation/Cognition Level of Alertness Alert Orientation Name Safety Awareness Decreased Safety Awareness Memory Description Short Term Impaired,Director Of Special Services Impaired Gross Range of Motion Lower Extremity ROM Assessment Within Functional Limits Strength Lower Extremity Strength Assessment Right Impaired Hip 3+/5 Knee 4-/5 Coordination Assessment Gross Coordination Gross Coordination WNL Sensation Assessment Sensation Gross Sensation WNL Muscle Tone Muscle Tone WNL Yes M6 PT-IP Treatment Start: 03/09/21 12:16 Freq: NEEDED Status: Active Protocol: Document 03/09/21 13:41 MA (Rec: 03/09/21 14:01 MA [id number]) Physical Therapy Treatment Education Education Provided Precautions,Weight Bearing Status,Safety Other Treatments Other Treatment Performed Caregiver training with discussing best practices for getting into/out of shower and bed. Pt's could repeat spinal precautions and shows good understanding of training . M7 PT-IP Assessment and Plan Start: 03/09/21 12:16 Freq: NEEDED Status: Active Protocol: Document 03/09/21 13:41 MA (Rec: 03/09/21 14:01 MA [id number]) PT Summary Assessment and Plan Potential Rehabilitation Potential Good Status of Condition at Evaluation Stable Summary Impairments Pain,ROM,Strength,Balance, Coordination,Sensation,Tone, Cognition,Bed Mobility, Transfers,Gait,Activity Tolerance Assessment Summary Pt was able to log roll CGA and required min A for SL> sitting EOB but needed Mod A for LEs and trunk returning sit>supine. He was CGA for gait and stair training today and will be able to d/c home with when medically discharged. was educated in caregiver training for bed mobility and stairs. Pt's has had spinal surgery before and was able to repeat precautions and shows good understanding of caregiver training. Pt was able to repeat 2/3 precautions at end of session and was left supine in bed, all needs within reach and present in room . Goals Bed Mobility Goal Standby Assistance Transfer Goal Standby Assistance,Front Wheeled Walker Gait Goal Standby Assistance,Front Wheel Walker Gait Distance 150 Other Goals up/down 3 steps B rails SBA Days to Meet Goals 5 Frequency of Treatment Frequency Of Treatment Twice a Day Treatment Plan Physical Therapy Treatment Plan Bed Mobility Training,Transfer Training,Gait Training, Therapeutic Exercise,Balance Retraining,Post Op Education, Discharge Planning,Hot or Cold Pack,Neuromuscular Re-ed, Coordination Retraining,Manual Therapy Other Recommendations and Next Treatment Continue caregiver training, Focus and increasing distance ambulated. Precautions Lumbar Precautions Log Roll,No Twisting,Limit Bending,Lifting Restriction of 10 lbs,Gait Belt above Incisional Area Recommendations To Nursing Amount of Assist Needed 1 Person Assist Discharge Recommendations PT Discharge Recommendations Home with 24/7 Assist Available Transportation Needs at Discharge Private Vehicle
--- NOTE | 2021-03-09 16:14 | CM.DANOTE ---
DCP/Assessment: Reviewed chart. Patient is a 80yr old male admitted to [facility] for elective spine surgery. PCP is Brien Fleming. Primary payor is 1)[facility] MCR Met with patient and spouse explained CM/SW role. Spouse reports frustration with patient's current OBS status. EXPRESSIVE THERAPIST and CM discussed YA and provided her with copy. Spouse requesting to speak with provider re: medication at time of d/c and whether or not patient can d/c home this pm. EXPRESSIVE THERAPIST left message with Orthopedic PA/Kranthi Gaytan. Spouse reports that she has needed DME and is prepared to take patient home. CM team to continue to follow. P: Home when stable. JAJA Rinaldi Discharge Planning/Care Management CM Discharge Assessment Start: 03/09/21 16:12 Freq: Status: Active Protocol: Document 03/09/21 16:12 KJS (Rec: 03/09/21 16:13 KJS [id number]) Discharge Planning Assessment Assigned Zone Supervisor Firearms JAJA Rinaldi Contact Information Celeste Hwang (spouse0 ph# Advance Directives? Yes History Provided By Patient,Family Member,Medical Record Prior Living Arrangements House Household Members spouse Type of transporation used prior to Relies on Others admit Independent with ADL's Yes Is patient alert and oriented? No: Spouse reports that patient has Alzeimer's Needs Assistance With Meal Prep,Managing Medications ,Home Chores / Shopping Caregiver for Another No Barriers to Discharge No Discharge Plan Home Whiteboard Updated in Patient Room with Yes name and ext. # of Zone Supervisor Firearms Review Status In Process Next Review Type Continued Stay Review Pre-Anesthesia Assessment Start: 03/01/21 13:42 Freq: Status: Complete Protocol: Document 03/02/21 08:05 CAB (Rec: 03/01/21 15:04 CAB [id number]) Pre-Anesthesia Assessment Preferred Name Daniel Patient Information Reviewed Via Phone Assessment Assessment Completed With Spouse Comment PAC w/, Celeste, pt has Alzheimers Diagnostic Results BMP/CMP,CBC,EKG Seen Specialist in Last 12 Months Yes Specialist Seen Business Objects Analyst,General surgeon, Orthopedist,Urologist Primary Language [place] Marine Cargo Specialist Required No Height 171.45 cm Weight 97.522 kg Body Mass Index (BMI) 33.1 Hearing Ability Hard of Hearing Visual Assist Glasses Dentition Type Teeth, Natural Present Barriers to Learning Cognitive impairment,Memory Comment Alzheimer's disease Hx Anesthesia Reactions No: ZACK-intolerant to CPAP Additional comment Alzheimer's disease Hx Family Anesthesia Reaction No Hx Malignant Hyperthermia No Hx Blood Transfusions Yes: s/p GERARDO '09 Hx Blood Transfusion Reaction No alcohol intake former Smoking Status Never smoker Substance Use Type does not use Pain Present Pain Reported Musculoskeletal Symptoms Abnormal Gait,Back Pain, Difficulty Walking,Numbness, Radiating Pain into Limb, Tingling History of Falling (Recent or History of Yes ) Patient is completely paralyzed or No completely immobile Ambulatory Aid Furniture Prosthesis or Orthotic Device Cane Mental Status Oriented to own ability Is patient on oxygen? No Does patient have VAZQUEZ/SOB No Hx Sleep Apnea Yes: Intolerant to CPAP CPAP/BIPAP use prescribed not used Currently Taking a Beta Miranda No Can You Climb a Flight of Stairs Without No SOB Hx Chest Pain Yes: Resolved s/p stent placement Hx SOB No Hx Syncope or Dizziness Yes: Occasional lightheadedness Anti-Coagulant Therapy No Has a Business Objects Analyst Yes: Dr. Lynn lst visit 09/28/20 Cardiac Testing Yes Hx Pacemaker/ICD No Pacemaker Rep Required? Yes Cardiac Clearance Received Yes Comment Cardiac records scanned Diet Type At Home Regular dysphagia No Gastrointestinal Symptoms Reflux Genitourinary Symptoms Genital Lesions Bladder Pattern Frequency,Urgency Urinary Catheter Present No Hx Urinary Self Catheterization No Diabetes No Presence of External or Internal Medical Yes: Cardiac stent, bilat hips Devices , eyes Have you had any close contact with No someone diagnosed with COVID-19? Marital Status Lives With spouse Prior Living Arrangements House Number of Floors (Floors) Two Floors Support System Spouse Does the Patient Have Assistance After Yes Surgery Patient Discharge Plan Description Return Home Comment Pt advised 2 day length of stay per surgeon Feels Safe in Current Environment Yes Been Physically Hurt or Threatened By a No Person in Current Environment Do you have thoughts of harming yourself None or others? Are you currently considering suicide? No Do you have a plan to hurt yourself or No Plan others? Do You Have Any Spiritual Beliefs That No May Affect Your HC Choices? Do You Have Any Cultural Practices That No May Affect Your HC Choices? Comment Restorationism Who Can We Speak to About Patient's Care Family, friends Identifying Code for Release of Patient Declines to issue Information Health Care Proxy/Next of Kin Celeste () Health Care Proxy cell: [phone] Emergency Contact Name Celeste () Emergency Contact cell: Advance Directives? Yes Power of Medical Management Trainer Yes Power of Medical Management Trainer Name CELESTE Power of Medical Management Trainer Phone Number [phone] PAC Instructions Durable medical equipment, Medications to take/avoid, Nasal antibiotic,No ETOH/ petroleum product on skin DOS, NPO,Post-op transportation, Sensory aids,Sturdy shoes/ comfortable clothes,Do not bring valuables and remove jewelry
[2021-03-09] MEDS: SENNOSIDES 8.6 MG TABLET 17.2 MG PO (20:20)
[2021-03-09] MEDS: FAMOTIDINE 20 MG TABLET 40 MG PO (20:20)
[2021-03-09] MEDS: lisinopriL 20 MG TABLET 40 MG PO (20:21)
[2021-03-09] MEDS: MIRTAZAPINE 15 MG TABLET PO (20:21)
[2021-03-10] VITALS: BP 138/75; PULSE 82; RESP 14; TEMP 37; O2SAT 93
[2021-03-10] MEDS: ACETAMINOPHEN 325 MG TABLET 650 MG PO ×3 (01:19→13:38)
[2021-03-10] MEDS: hydrOXYzine pamoate 25 MG CAPSULE PO ×3 (01:19→12:30)
[2021-03-10 03:04] VITALS: BP 145/85; PULSE 89; RESP 20; TEMP 36.9; O2SAT 94
--- NOTE | 2021-03-10 03:14 | PC.NURSE ---
Dr. Melgoza notified, pt's. spouse reported that pt's. twisted her right wrist & noted bruises in her wrist. Orders received from Dr. Melgoza to ask Mrs. Hwang if she needed to see an ER doctor or get a police involved with the incident. declined all interventions she states I don't think I need to see the ER doctor or talked to the police, I will be fine. Order to admin. 0.5 mg. of Lorazepam PO for agitation. Will implement order & monitor.
--- NOTE | 2021-03-10 03:15 | PC.NURSE ---
Addendum entered by Khoa Busby CNA 03/10/21 06:56: medicated by RN at scheduled time* Addendum entered by Khoa Busby CNA 03/10/21 06:47: Pt restless, unable to sleep either, pt attempted to get out of bed again despite explaining he needed to wait for assistance. ASPHALT SCREED OPERATOR writing this witnessed this while walking by. When engaging pt he stated he needed to sit up d/t intensity of pain while lying down. Pt was medicated, and open to ambulation out of room in attempt to relieve pain. Was able to walk with FWW and gaitbelt from bed 212 to 210 and back before noticing some mild pain. During this entire encounter pt was pleasant and cooperative. Original Note: @0245 Celeste calls for assistance, pt had attempted to climb out of bed on his own and in the process of trying to get out had twisted her right wrist. ASPHALT SCREED OPERATOR writing this arrives to room after that event to find pt sitting at the end of the bed with the bed alarm being activated. When I engage him in conversation he is very pleasant and mostly cooperative aside from trying to walk without FWW, but is easily redirected. discussed event while pt using urinal and showed me her wrist which had 2 areas of bruising. She informed me she bruises easily, but that this abrasive encounter was unusual for him from his baseline. Once pt was back to bed, I spoke with pt to determine if he was able to recall that event, but he only remembered having trouble getting out of bed, he did not remember injuring or engaging with his . I encouraged pt to speak with RN outside of room away from pt and to discuss the situation along with her concerns. She agreed, and spoke with Suha RN and Ines RN coordinator for tonight. During the ~5min of discussion, ASPHALT SCREED OPERATOR writing this sat with pt who remained pleasant and told stories clearly, concisely, in detail, and was recalling names. Pt bed now with seizure pads for protection, and instructed to not engage with pt if he tries to get out of bed, but to call us alvina.
[2021-03-10] MEDS: LORazepam 0.5 MG TABLET PO (03:25)
--- NOTE | 2021-03-10 03:29 | PC.NURSE ---
Discussed Hospitalist consult Dr. Melgoza but he declined at this time.
[2021-03-10] MEDS: PANTOPRAZOLE DR 40 MG TABLET PO (06:27)
[2021-03-10] MEDS: ACYCLOVIR 400 MG TABLET PO (08:43)
[2021-03-10] MEDS: LORATADINE 10 MG TABLET PO (08:43)
[2021-03-10] MEDS: CHOLECALCIFEROL (VITAMIN D3) 1,000 UNIT TABLET 1000 UNIT PO (08:43)
[2021-03-10] MEDS: DULOXETINE 30 MG CAPSULE 60 MG PO (08:43)
[2021-03-10] MEDS: CYANOCOBALAMIN (VITAMIN B-12) 500 MCG TABLET 1000 MCG PO (08:43)
[2021-03-10] MEDS: DOCUSATE 100 MG CAPSULE PO (08:44)
[2021-03-10] MEDS: POTASSIUM CHLORIDE 20 MEQ TAB PO (08:44)
[2021-03-10] MEDS: hydroCHLOROthiazide 25 MG TABLET 12.5 MG PO (08:44)
[2021-03-10] MEDS: GABAPENTIN 600 MG TABLET PO (08:44)
[2021-03-10] MEDS: SODIUM CHLORIDE 0.9% FLUSH 10 ML IV (08:45)
[2021-03-10] MEDS: ATORVASTATIN 20 MG TABLET 40 MG PO (08:49)
--- NOTE | 2021-03-10 09:11 | PT.IPTN ---
Current Diagnoses Spondylolisthesis, lumbar region (03/09/21) Surgery Performed Operation Date: 03/08/21 07:45 Actual Procedures p L3-4, L4-5 TLIF w. posterior instrumentation - Mandy Sun MD Physical Therapy Treatment Note M2 PT-IP Current Condition Start: 03/09/21 12:16 Freq: NEEDED Status: Active Protocol: Document 03/10/21 09:17 MA (Rec: 03/10/21 09:37 MA [id number]) Physical Therapy Current Condition Current Condition Evaluation Date 03/09/21 Treatment Diagnosis s/p L3-4, L4-5 fusion/lami; difficulty in walking Onset Date 03/08/21 Precautions Lumbar Precautions Log Roll,No Twisting,Limit Bending,Lifting Restriction of 10 lbs,Gait Belt above Incisional Area M3 PT-IP Subjective Start: 03/09/21 12:16 Freq: NEEDED Status: Active Protocol: Document 03/10/21 09:17 MA (Rec: 03/10/21 09:37 MA [id number]) Subjective Physical Therapy Visit Type Type Treatment Note Visit Start Time 08:46 Visit Stop Time 09:11 Total Visit Minutes 25 Number of RESIDENT CARE COORDINATOR Visits 2 Physical Therapy Visit Comments Patient Comments Pt, , and nurse in room. Pt is willing to work with therapy and wants to get back in bed Therapy Pain Assessment Pain When Pain Assessed During Mobility Pain Present Pain Present Pain Reported Location Back Intensity 8 Pain Management Techniques Apply Cold,Distraction, Modification of Treatment,Re- positioning,Timing of Activity with Medications M4 PT-IP Mobility and Gait Start: 03/09/21 12:16 Freq: NEEDED Status: Active Protocol: Document 03/10/21 09:17 MA (Rec: 03/10/21 09:37 MA [id number]) PT-Bed Mobility Assessment Rolling Type of Rolling Log Rolling Level of Assist Contact Guard Assistance,1 Person Assistance Sit to Supine Sit to Supine Moderate Assistance Scooting Scooting to Edge of Bed Contact Guard Assistance PT-Transfer Assessment Sit to and From Stand Sit to and from Stand Contact Guard Assistance,1 Person Assistance,Use of Upper Extremities Equipment Transfer Assistive Device Gait Belt,Front Wheeled Walker Orthotic/Prosthetic Devices or Brace: No Transfers Transfer Destination Bed,Chair,Toilet Transfer Technique Stand Step Pivot Transfer Ability Level of Assist Contact Guard Assistance, Minimal Assistance,1 Person Assistance,Use of Upper Extremities Comments Mobility Comments Pt found in room chair and needs to use restroom. He is CGA with cues for hand placement for sit<>stand from chair. His pain is 8/10 upon standing. Pt ambulates 10 ft to restroom, [facility] with gait belt and FWW. He is able to transfer to toilet CGA with cues to use grab bar when sitting. Pt shows impulsiveness and tries to get up without help once finished on toilet. Reminded pt he can 't get up alone and to ask for assistance anytime he needs to get up and walk somewhere. Instructed pt's on how to use gait belt for home during ambulation and had pt's assist in guarding while walking 10 ft in room. Pt was then assisted back to bed where he was mod A for sit>SL and log rolling to supine. Pt requested log rolling back on side due to pain. Pt is CGA using bed rail for second log roll and was positioned with pillows poseriorly to avoid rolling, and in between LEs and UEs for comfort and proper positioning. Gait Assessment Gait Gait Assistance Required: Contact Guard Assist,1 Person Assist Distance (Feet) 20 Able to Maintain Weight Bearing Status Yes During Gait Assistive Devices Assistive Device Gait Belt,Front Wheeled Walker Orthotic/Prosthetic Devices or Brace: No Gait Deviations General Gait Pattern Antalgic,Decreased Stride Length,Decreased Feet Clearance,Flexed Trunk Factors Limiting Gait Function Factors Limiting Gait Function Abnormal Tonal Influences, Decreased Strength,Limited Range of Motion,Pain,Poor Balance,Poor Safety Awareness Comments Gait Comments Pt ambulated in room 20 ft total today. See transfer section for more details. PT-Balance Assessment Sitting Balance and Reactions Static Sitting Balance Ability Good Dynamic Sitting Balance Ability Good Standing Balance and Reactions Static Standing Balance Ability Good Dynamic Standing Balance Ability Fair M5 PT-IP Objective Assessments Start: 03/09/21 12:16 Freq: NEEDED Status: Active Protocol: Document 03/09/21 09:40 AB (Rec: 03/09/21 12:28 AB [id number]) Orientation Orientation/Cognition Level of Alertness Alert Orientation Name Safety Awareness Decreased Safety Awareness Memory Description Short Term Impaired,Fci Impaired Gross Range of Motion Lower Extremity ROM Assessment Within Functional Limits Strength Lower Extremity Strength Assessment Right Impaired Hip 3+/5 Knee 4-/5 Coordination Assessment Gross Coordination Gross Coordination WNL Sensation Assessment Sensation Gross Sensation WNL Muscle Tone Muscle Tone WNL Yes M6 PT-IP Treatment Start: 03/09/21 12:16 Freq: NEEDED Status: Active Protocol: Document 03/10/21 09:17 MA (Rec: 03/10/21 09:37 MA [id number]) Physical Therapy Treatment Education Education Provided Precautions,Weight Bearing Status,Safety Other Treatments Other Treatment Performed Caregiver training done with again on how to use gait belt, how to position pillows in bed for keeping pt from twisting/rolling while sleeping, and verbal reminder of how to guard pt on stairs. Pt's son will be home to assist on stairs today if pt is d/c. M7 PT-IP Assessment and Plan Start: 03/09/21 12:16 Freq: NEEDED Status: Active Protocol: Document 03/10/21 09:17 MA (Rec: 03/10/21 09:37 MA [id number]) PT Summary Assessment and Plan Potential Rehabilitation Potential Good Status of Condition at Evaluation Stable Summary Impairments Pain,ROM,Strength,Balance, Coordination,Sensation,Tone, Cognition,Bed Mobility, Transfers,Gait,Activity Tolerance Assessment Summary Pt shows more impulsiveness today when getting up off chair and toilet. He needs cues to push with hands from chair and to use grab bar in bathroom vs pulling up from walker. Pt continues to need mod assistance getting into bed but once in bed is able to log roll independently using bed rails. Pt is limited today due to pain and refuses to ambulate in hallway this session. practiced with PT in room how to ambulate pt using gait belt, how to position pt properly in SL to follow spinal precautions, and verbally reminded how to guard pt while ascending stairs. states that pt's son will be available to help today if pt is d/c. Pt is left SL in bed, nurse aware of position change, all needs within reach and spouse present in room. Goals Bed Mobility Goal Standby Assistance Transfer Goal Standby Assistance,Front Wheeled Walker Gait Goal Standby Assistance,Front Wheel Walker Gait Distance 150 Other Goals up/down 3 steps B rails SBA Days to Meet Goals 5 Frequency of Treatment Frequency Of Treatment Twice a Day Treatment Plan Physical Therapy Treatment Plan Bed Mobility Training,Transfer Training,Gait Training, Therapeutic Exercise,Balance Retraining,Post Op Education, Discharge Planning,Hot or Cold Pack,Neuromuscular Re-ed, Coordination Retraining,Manual Therapy Other Recommendations and Next Treatment Continue caregiver training, Focus and increasing distance ambulated. Precautions Lumbar Precautions Log Roll,No Twisting,Limit Bending,Lifting Restriction of 10 lbs,Gait Belt above Incisional Area Recommendations To Nursing Amount of Assist Needed 1 Person Assist Discharge Recommendations PT Discharge Recommendations Home with 24/ Assist Available Transportation Needs at Discharge Private Vehicle
--- NOTE | 2021-03-10 10:12 | OT.IP.TRT ---
Current Diagnoses Spondylolisthesis, lumbar region (03/09/21) Surgery Performed Operation Date: 03/08/21 07:45 Actual Procedures p L3-4, L4-5 TLIF w. posterior instrumentation - Mandy Sun MD Occupational Therapy Treatment Note M2 OT-IP Current Condition Start: 03/09/21 11:51 Freq: Status: Active Protocol: Document 03/09/21 10:50 [facility] (Rec: 03/09/21 12:23 [facility] [id number]) Occupational Therapy Current Condition Current Condition Evaluation Date 03/09/21 Treatment Diagnosis S/p L3-4, l4-5 TLIF with posterior inst Diagnosis Onset Date 03/08/21 Post Operative Precautions Lumbar Precautions Log Roll,No Twisting,Limit Bending,Lifting Restriction of 10 lbs,Gait Belt above Incisional Area M3 OT- IP Subjective and Pain Start: 03/09/21 11:51 Freq: Status: Active Protocol: Document 03/10/21 10:13 [facility] (Rec: 03/10/21 10:23 [facility] [id number]) OT- Subjective Occupational Therapy Visit Type Type Treatment Note Visit Start Time 09:38 Visit Stop Time 10:12 Total Visit Minutes 24 Occupational Therapy Visit Comments Patient Comments Pt wanting to use the bathroom , but felt too tired to shower today. Pt's in the room. Patient/Caregiver Goals To go home. OT Pain Assessment Pain When Pain Assessed At Rest Pain Present Pain Present Pain Reported Location Back Intensity 7 Scale Used Numeric (0 - 10) M4 OT- IP ADL's Start: 03/09/21 11:51 Freq: Status: Active Protocol: Document 03/10/21 10:13 [facility] (Rec: 03/10/21 10:23 [facility] [id number]) OT [id number] Comments OT Self-Feeding Comments Not at meal time. OT ADL-Grooming Comments OT Grooming Comments Not performed. OT ADL-Toileting General Evaluation Toileting Ability Standby Assistance Comments OT Toileting Comments Pt able to reach from behind to wipe but not able to have a bowel movement. OT ADL-Bathing Comments OT Bathing Comments Pt states in too much pain to shower at this time. M5 OT- IP IADL's Start: 03/09/21 11:51 Freq: Status: Active Protocol: Document 03/09/21 10:50 [facility] (Rec: 03/09/21 12:23 [facility] [id number]) OT-Instrumental Activities of Daily Living Home Safety Awareness Awareness of Need for Assistance at Home Decreased Awareness Ability to Problem Solve Emergency Unable to Problem Solve Situations Home Safety Comments Pt has Alzheimer's and has decreased safety awareness. Medication Management Medication Management Caregiver Administers Money Management Money Management Caregiver Provides Assistance Meal Preparation Meal Preparation Caregiver Provides Assist Stationary Plant Operators Stationary Plant Operators Caregiver Provides Assist Driving Driving Caregiver Provides Assist M6 OT- IP Functional Cognition Start: 03/09/21 11:51 Freq: Status: Active Protocol: Document 03/10/21 10:13 [facility] (Rec: 03/10/21 10:23 [facility] [id number]) Cognitive Factors Limiting Selfcare Function Cognitive Ability Level of Alertness Alert,Confusional State Patient Orientation Name,Place,Situation Attention Span Ability Capable of Focused Attention, Capable of Sustained Attention Ability to Follow Commands Able to Follow One Step Commands with Increased Time, Able to Follow One Step Commands with Repetition Memory Description Short Term Impaired Safety Awareness Decreased Recall of Precautions,Decreased Ability to Apply Precautions, Underestimates Need for Assistance Cognitive Comments Cognitive Assessment Comments Pt needing continuous vc for safety with FWW, transfers, and bed mobility needs. M7 OT- IP Mobility and Balance Start: 03/09/21 11:51 Freq: Status: Active Protocol: Document 03/10/21 10:13 [facility] (Rec: 03/10/21 10:23 [facility] [id number]) OT- Bed Mobility Assessment Supine to Sit Supine to Sit Assist Minimal Assistance Sit to Supine Sit to Supine Assist Moderate Assistance OT-Transfer Assessment Sit to and From Stand Sit to and from Stand Minimal Assistance,Moderate Assistance Transfers Transfer Ability Minimal Assistance Technique Transfer Destination Bed,Chair,Toilet Transfer Technique Stand Step Pivot Devices Transfer Assistive Devices Gait Belt,Front Wheeled Walker Comments Mobility Comments Today pt needing more assist to stand and for bed mobility needs due to his pain and now questionable whether his will be able to provide enough physical assist now. Pt's son currently living with them and would be beneficial to have him come in for caregiver training. OT- Balance Assessment Sitting Balance and Reactions Static Sitting Balance Ability Good Dynamic Sitting Balance Ability Fair Standing Balance and Reactions Static Standing Balance Ability Fair Comments Other Balance Tests/Deviations/Treatment Pt unsteady on his feet and : needing assist to keep the FWW close to him. Pt feels that his pain and fatigue is affecting him. Nursing notified of his pain. Chair alarm placed on the pt. M8 OT- IP Objective Assessments Start: 03/09/21 11:51 Freq: Status: Active Protocol: Document 03/09/21 10:50 [facility] (Rec: 03/09/21 12:23 [facility] [id number]) OT Gross Range of Motion Upper Extremity Range of Motion Assessment Within Functional Limits OT-Muscle Tone Assessment Muscle Tone WNL Yes M9 OT- IP Assessment and Plan Start: 03/09/21 11:51 Freq: Status: Active Protocol: Document 03/10/21 10:13 [facility] (Rec: 03/10/21 10:23 [facility] [id number]) OT Summary Assessment and Plan Potential Rehabilitation Potential Good Analytic Complexity at Evaluation Low Summary OT Impairments Pain,Balance,Functional Cognition,Functional Mobility, Grooming,Dressing,Toileting, Bathing,Toilet Transfers, Shower Transfers Progress Towards Goals Slow Progress due to Pain,Slow Progress due to Medical Issues,Slow Progress due to Cognition Assessment Summary Pt needing more assist today and having more pain today. Now questionable whether his is able to safely assist pt at home. Pt's son currently lives with them and would be beneficial to have the son come in for caregiver training. To touch base with case management. Goals Grooming Goal Standby Assistance Dressing Goal Standby Assistance Toileting Goal Standby Assistance Bathing Goal Minimal Assistance Toilet Transfer Goal Standby Assistance Shower Transfer Goal Standby Assistance Patient/Caregiver Education Goal Demonstrate Post-Op Precautions,Caregiver Independent Assisting Patient Days to Meet Goals 5 Frequency of Treatment Frequency Of Treatment Once a Day Treatment Plan OT Treatment Plan ADL Training,Functional Cognition Training,Functional Mobility,Patient/Family Education,Discharge Planning Other Treatment Recommendations and Next Shower,caregiver training with Treatment Focus son Discharge Recommendations OT Discharge Recommendations Home with / Assist Available Home Equipment Needs Shower chair Transportation Needs at Discharge Private Vehicle
[2021-03-10 10:45] VITALS: BP 122/78; PULSE 91; RESP 18; TEMP 36.6; O2SAT 95
--- NOTE | 2021-03-10 15:10 | P.DS_ITS ---
History of Present Illness History of Present Illness Date Patient Seen: 03/10/21 Time Patient Seen: 15:10 Chief complaint: Translam Interbody Fusion/Laminotomy - Robot *OPB* Narrative: Refer to previous HPI. Discharge Providers Provider Date of admission: 03/09/21 10:51 Discharge Date: 03/10/21 Primary care physician: Brien Fleming DO Consults: 03/08/21 07:57 Consult to Respiratory Therapy Evaluate & Treat Comment: Physician Instructions: Evaluate and treat 03/08/21 14:45 Consult to Occupational Therapy Evaluate & Treat Comment: Physician Instructions: Evaluate and treat Consult to Physical Therapy Evaluate & Treat Comment: Physician Instructions: Evaluate and Treat Discharge provider: Samantha Monroy PA-C Summary Hospital Course Discharge Diagnosis: 1. L3-4, L4-5 spinal stenosis with neurogenic claudication 2. L3-4, L4-5 spondylolisthesis 3. 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 L3-4, L4-5 Postero-lateral and posterior interbody fusion 2. L3-4, L4-5 interbody cage placement. 3. L3-4, L4-5 decompressive laminectomy with bilateral facetecomies 4. L3-4, L4-5 Posterior segmental instrumentation 5. 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 Utilization of microsurgical technique and operating microscope 7. Robotic assisted navigation surgery Hospital Course: The patient was admitted to the hospital following the above- listed procedure for the above-listed diagnosis. The patient is convalescing appropriately. The his pain is managed well with current pain medications. During his hospital course. He has denied fevers, chills, night sweats, nausea, vomiting, urinary retention. He has a baseline of Alzheimer's and has become somewhat forgetful, therefore going home will be beneficial for him. The patient and his have successfully worked with physical therapy. He has bee n weight-bearing as tolerated and using a front wheeled walker. His dressing has had stable, scant drainage but has not been changed throughout his course in the hospital. Status at Discharge Cognitive/behavioral status at discharge: at baseline, confused (At baseline, mildly confused.) Functional status at discharge: uses cane/walker Overall status at discharge: patient is progressing back to baseline Exam Vital Signs (past 8 hours): - 03/10/21 10:45 Temperature 97.9 F Pulse Rate 91 H Respiratory Rate 18 Blood Pressure 122/78 Pulse Oximetry 95 Oxygen Delivery Method Room Air Oxygen Flow Rate 0 Physical exam demonstrates scant drainage on his dressing which is unchanged fro m yesterday. In he has grossly intact motor function in bilateral lower extremities. Gross sensation is intact to light touch bilateral extremities. Gross motor function is intact in bilateral lower extremities. Calves are soft and nontender to palpation. Objective Labs Result Diagrams: 03/09/21 06:25 [facility] Medical History Alzheimer disease Anxiety BPH (benign prostatic hyperplasia) CAD (coronary artery disease) Chronic cough Depression Enlarged prostate GERD (gastroesophageal reflux disease) Hearing impaired Herpes History of Mohs micrographic surgery for skin cancer HLD (hyperlipidemia) HTN (hypertension) Kidney stones ZACK (obstructive sleep apnea) PVD (peripheral vascular disease) Rosacea SCC (squamous cell carcinoma) Sciatica Spinal stenosis Testicular pain Surgical History History of arthroplasty of left hip History of arthroplasty of right hip History of cardiac cath History of detached retina repair History of vasectomy Hx of bilateral cataract extraction Hx of heart artery stent (04/03/05) Hx of lithotripsy Hx of tonsillectomy Hx of transurethral resection of prostate (~1989) Social History household members: spouse Smoking Status: Never smoker alcohol intake: former Discharge Assessment & Plan Assessment and Plan Assessment: The patient is stable and doing well. He is progressing with physical therapy and working on pain management. Plan of Treatment: The plan is to discharge the patient home today. He has a follow-up appointment in 2 weeks for his postoperative visit. Please contact the office if you notice an increase in redness, drainage, shortness of breath or chest pain. You may shower and replace the dressing if it is saturated or wet. No soaking or submerging the incision or ointments over the wound. None please use Tylenol around the clock for pain management and tramadol as needed for breakthrough pain. Maximum Tylenol is 3000 mg a day and maximum tramadol is 8 tablets a day. Discharge Plan Discharge Plan Patient Disposition: Home Provider Discharge Comment: Discharge home when cleared by physical therapy. Discharge orders & Medications Prescriptions: Continued vitamin E 400 unit Tablet 400 unit PO DAILY Qty: 0 RF: 0 psyllium husk [Metamucil] 0.52 GM capsule 0.52 gm PO Q DAY Qty: 0 RF: 0 atorvastatin [Lipitor] 80 MG tablet 80 mg PO SEEINSTR Qty: 0 RF: 0 hydrochlorothiazide 25 mg Tablet 12.5 mg PO DAILY Qty: 0 RF: 0 cholecalciferol (vitamin D3) [Vitamin D3] 1,000 UNIT tablet 1,000 unit PO BID Qty: 0 RF: 0 gabapentin 600 mg Tablet 600 mg PO DAILY RF: 0 meloxicam 15 mg Tablet 15 mg PO DAILY RF: 0 famotidine 40 mg Tablet 40 mg PO BEDTIME RF: 0 acyclovir 400 mg Tablet 400 mg PO BID RF: 0 mirtazapine 15 mg Tablet 15 mg PO BEDTIME RF: 0 lisinopril 40 mg Tablet 40 mg PO BEDTIME RF: 0 potassium chloride 20 mEq Tablet Extended Release 20 meq PO BID RF: 0 cyanocobalamin (vitamin B-12) [Vitamin B-12] 1,000 mcg Tablet 1,000 mcg PO DAILY RF: 0 cetirizine [Zyrtec] 10 mg Tablet 10 mg PO DAILY RF: 0 duloxetine 60 mg Capsule,Delayed Release(Dr/Ec) 60 mg PO DAILY RF: 0 pantoprazole 40 mg Tablet,Delayed Release (Dr/Ec) 40 mg PO BID Qty: 0 RF: 0 Changed tramadol 50 MG tablet 50 - 100 mg PO Q4-6H PRN (Reason: Pain, max 8 per day) Qty: 42 RF: 0 acetaminophen 500 mg Tablet 500 mg PO Q4-6H Qty: 90 RF: 0 Medication counseling provided by Pharmacist: Yes Follow up/Referrals: Brien Fleming DO [Primary Care Provider] - Diet/Activity/Treatments Diet: Diet as Tolerated and Regular Activity: Weight-bearing as tolerated with the assistance of a front wheeled walker. No bending, twisting, lifting. Cold/Heat Therapy: Ice as needed for pain Skin/Wound/Dressing Care Report to your healthcare provider any signs of infection, such as:: chills, fever, night sweats, unusual drainage and unusual redness Dressing: Keep dressing dry. Other wound treatment: May shower after 2 days. No soaking or submerging or ointments to the wound. Change the dressing as needed, if it becomes saturated or soiled. Visit Report/Discharge Packet Instructions: DI for Prescription Opioid Use, DI for Transforaminal Lumbar Interbody Fusion Stand Alone Forms: Surgery Discharge Discharge Data Primary Care Provider: Brien Fleming Attending Provider: Mandy Sun
--- NOTE | 2021-03-10 15:28 | PT-IP ANOTE ---
checked with pt and spouse and stated that they are going home today. spouse stated that she is comfortable with assisting pt and has no concerns.
--- NOTE | 2021-03-10 15:38 | PC.NURSE ---
Pt A&Ox1-2, VSS, afebrile. Cooperative and calm this shift although pain level elevated. Per confusion and agitation overnight, avoiding oxycodone. PA clearing pt for discharge this a.m. after clearing PT/OT. Received orders for tramadol with increased dose this afternoon. Pt appears to have pain well controlled. Dressing to back changed C/D/I scant old dried blood on prior bandage. supportive at bedside, managing medications and MD appointments verbalizes understanding of medications, activity, incision care, worsening of symptoms and follow up instructions. [employer] INTERVIEWER escorted patient with all belongings via w/ch to private vehicle with at approximately 1530. FWW in vehicle for assistance at home.
== END 2021-03-10 15:53 | disposition home or self-care (01) ==
LOC: OR 11:16 → AC 11:17
PROVIDERS: Admitting Provider Orthopaedic Surgery Orthopaedic Surgery of the Spine; PCP Family Medicine; Referring Provider Orthopaedic Surgery Orthopaedic Surgery of the Spine; Visit Provider Orthopaedic Surgery Orthopaedic Surgery of the Spine
PROC: (CPT 22633; principal; 2021-03-08 07:45)
DX: M48.062 Spinal stenosis, lumbar region with neurogenic claudication (principal); M54.16 Radiculopathy, lumbar region; M43.16 Spondylolisthesis, lumbar region; I10 Essential (primary) hypertension; I25.10 Atherosclerotic heart disease of native coronary artery without angina pectoris; E78.5 Hyperlipidemia, unspecified
CPT/HCPCS: 22633; 22634; 22842; 22853 ×2; 63047; 63048; 20939; 36415; 72100; 76000; 85014; 85018; 94762; 97116; 97161; 97165; 97530; 97535; C1776; G0378; A9270; C9290; J0330; J0690; J1100; J1170; J2405; J2704; J3010